=== PATIENT | female | born 1990 | race Caucasian/White ===

== ENCOUNTER 2018-06-30 19:24 | Emergency (ER) | payer BC, MEDICAID ==
[2018-06-30 20:19] VITALS: RESP 18
[2018-06-30] MEDS ORDERED: Albuterol-Ipratrop 3 mg / 0.5 (3 ml) UD INH STA (20:54)
[2018-06-30] MEDS ORDERED: Albuterol-Ipratrop 3 mg / 0.5 (3 ml) UD ONE (21:09)
--- NOTE | 2018-06-30 21:54 | C.PDOC ---
History Of Present Illness 28 year old female presents to the ED c/o coughing, wheezing typical for her asthma exacerbation. Patient states she has a puffer at home but does not use it , patient also has nebulizer machine and liquids at home but did not use it. Patient thought she might need another treatment. Patient states she only used 1 duoneb twice a day maximum. Patient gets treatments twice a year. Patient reports she also applies triamcinolone cream to various area in her body that she feels have eczema. Patient is also c/o increase body weight, central obesity , emergent buffalo hump, worsening sleep apnea proportional to her food intake. Time Seen by Provider: 06/30/18 20:42 Chief Complaint (Nursing): Cough, Cold, Congestion History Per: Patient History/Exam Limitations: no limitations Onset/Duration Of Symptoms: Days Current Symptoms Are (Timing): Still Present Associated Symptoms: Cough Severity: None Recent travel outside of the [place]: No Additional History Per: Patient Past Medical History Reviewed: Historical Data, Nursing Documentation, Vital Signs Vital Signs: Last Vital Signs Temp 99.2 F 06/30/18 22:11 Pulse 114 H 06/30/18 22:11 Resp 18 06/30/18 22:11 BP 141/87 06/30/18 22:11 Pulse Ox 99 06/30/18 22:11 - Medical History PMH: Asthma Surgical History: No Surg Hx Family History: States: Unknown Family Hx - Social History Hx Tobacco Use: No Hx Alcohol Use: Yes Hx Substance Use: No - Immunization History Hx Tetanus Toxoid Vaccination: No Hx Influenza Vaccination: Yes Hx Pneumococcal Vaccination: No Review Of Systems Constitutional: Negative for: Fever, Chills Cardiovascular: Negative for: Chest Pain, Palpitations Respiratory: Positive for: Cough, Shortness of Breath, Wheezing Gastrointestinal: Negative for: Nausea, Vomiting, Abdominal Pain Skin: Negative for: Rash Neurological: Negative for: Weakness, Numbness Physical Exam - Physical Exam Appears: Non-toxic, No Acute Distress Skin: Normal Color, Warm, Dry Head: Atraumatic, Normacephalic, Other (Ruther[place] face) Eye(s): bilateral: Normal Inspection Neck: Normal ROM, Supple, Other (buffalo hump) Chest: Symmetrical Cardiovascular: Rhythm Regular Respiratory: No Rales, No Rhonchi, No Wheezing, Other (tubular breath sounds) Gastrointestinal/Abdominal: Soft, No Tenderness, No Guarding, No Rebound, Other (central obesity extreme vertical stria) Back: Other (supraclavicula fat pad) Extremity: Normal ROM, No Tenderness, No Swelling Neurological/Psych: Oriented x3, Normal Speech Gait: Steady ED Course And Treatment O2 Sat by Pulse Oximetry: 100 (ON RA) Pulse Ox Interpretation: Normal Medical Decision Making Medical Decision Making: mild asthma exacerbation ? 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 eczema lesions of anti-cubital, thighs and upper chest area Instructed to STOP all steroids outpatient eval with 24 hr urine cortisol, ACTH levels with PMD ROS: + for worstening sleep apnea prob related to central obesity and small OP and significant weight gain Refer for sleep study and tx. Disposition Doctor Will See Patient In The: Office Counseled Patient/Family Regarding: Studies Performed, Diagnosis - Disposition Referrals: [facility] [Outside] [facility] [place] [Outside] [facility] [Outside] Kei Pimentel MD [Staff Provider] - Irwin Padilla MD [Staff Provider] - Disposition: HOME/ ROUTINE Disposition Time: 21:54 Condition: GOOD Additional Instructions: mild asthma exacerbation ? 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 eczema lesions of anti-cubital, thighs and upper chest area Instructed to STOP all steroids outpatient eval with 24 hr urine cortisol, ACTH levels with PMD ROS: + for worstening sleep apnea prob related to central obesity and small OP and significant weight gain Refer for sleep study and tx. call Dr. Pimentel to make appointment for a Sleep Study Prescriptions: Albuterol HFA [Ventolin HFA 90 mcg/actuation (8 g)] 2 puff IH Q4H PRN #1 puff PRN Reason: asthma Spacer, Inhalation [Aerochamber] 1 dev IH DAILY #1 dev Instructions: Makenna's Syndrome, Asthma in Adults, Sleep Apnea (DC) Forms: [facility] (Azeri) - Clinical Impression Clinical Impression: Asthma exacerbation, Makenna syndrome, Sleep apnea - Scribe Statement The provider has reviewed the documentation as recorded by the Scribe Dennis Miles All medical record entries made by the Scribe were at my direction and personally dictated by me. I have reviewed the chart and agree that the record accurately reflects my personal performance of the history, physical exam, medical decision making, and the department course for this patient. I have also personally directed, reviewed, and agree with the discharge instructions and disposition.
[2018-06-30 22:11] VITALS: BP 141/87; PULSE 114; TEMP 99.2
[2018-06-30 23:54] VITALS: O2SAT 100
== END 2018-06-30 22:23 | disposition home or self-care (01) ==
LOC: C.ER 19:24
DX: J45.901 Unspecified asthma with (acute) exacerbation (principal); G47.30 Sleep apnea, unspecified; E24.9 Cushing's syndrome, unspecified; Z87.891 Personal history of nicotine dependence

== ENCOUNTER 2018-07-10 09:57 | Emergency (ER) | payer BC ==
[2018-07-10 10:06] VITALS: BMI 42.4
--- NOTE | 2018-07-10 10:56 | RAD ---
Date of service: 07/10/2018 PROCEDURE: Right Ankle Radiographs. HISTORY: ankle swelling - r/o fx COMPARISON: None FINDINGS: BONES: No acute fracture. JOINTS: Ankle mortise maintained. Talar dome intact SOFT TISSUES: Bimalleolar soft tissue swelling. OTHER FINDINGS: None. IMPRESSION: No demonstrated fracture or dislocation.
[2018-07-10 11:15] VITALS: BP 113/78; PULSE 77; RESP 16; TEMP 98.7; O2SAT 100
--- NOTE | 2018-07-10 11:36 | C.PDOC ---
History Of Present Illness 28 y/o female presents to ED with c/o right ankle pain for 2 days after walking down steps and inverting right ankle. Patient is able to ambulate with slight limp and denies numbness, weakness or any other complaints at this time. Time Seen by Provider: 07/10/18 10:15 Chief Complaint (Nursing): Lower Extremity Problem/Injury History Per: Patient History/Exam Limitations: no limitations Onset/Duration Of Symptoms: Days Current Symptoms Are (Timing): Still Present Past Medical History Reviewed: Historical Data, Nursing Documentation, Vital Signs Vital Signs: Last Vital Signs Temp 98.7 F 07/10/18 11:13 Pulse 77 07/10/18 11:13 Resp 16 07/10/18 11:13 BP 113/78 07/10/18 11:13 Pulse Ox 100 07/10/18 14:11 - Medical History PMH: Asthma Surgical History: No Surg Hx Family History: States: No Known Family Hx - Social History Hx Tobacco Use: No Hx Alcohol Use: Yes Hx Substance Use: No - Immunization History Hx Tetanus Toxoid Vaccination: No Hx Influenza Vaccination: Yes Hx Pneumococcal Vaccination: No Review Of Systems Musculoskeletal: Positive for: Foot Pain. Negative for: Leg Pain Skin: Negative for: Rash, Bruising Neurological: Negative for: Weakness, Numbness Physical Exam - Physical Exam Appears: Non-toxic, No Acute Distress Skin: Warm, Dry, No Rash Head: Atraumatic, Normacephalic Eye(s): bilateral: Normal Inspection Oral Mucosa: Moist Extremity: Tenderness (lateral aspect of right ankle), Capillary Refill (<2 seconds), No Deformity, Swelling (to lateral aspect of right ankle) Extremity: Bilateral: Normal ROM Pulses: Right Dorsalis Pedis: Normal Neurological/Psych: Oriented x3, Normal Motor, Normal Sensation ED Course And Treatment O2 Sat by Pulse Oximetry: 100 (RA) Pulse Ox Interpretation: Normal Disposition - Disposition Referrals: [facility] Shruti Andrews, [Non-Staff] - Disposition: HOME/ ROUTINE Disposition Time: 10:55 Condition: GOOD Additional Instructions: MEL MONAE, thank you for letting us take care of you today. The emergency medical care you received today was directed at your acute symptoms. If you were prescribed any medication, please fill it and take as directed. It may take several days for your symptoms to resolve. Return to the Emergency Department if your symptoms worsen, do not improve, or if you have any other problems. Please contact your doctor or call one of the physicians/clinics you have been referred to that are listed on the Patient Visit Information form that is included in your discharge packet. Bring any paperwork you were given at discharge with you along with any medications you are taking to your follow up visit. Our treatment cannot replace ongoing medical care by a primary care provider outside of the emergency department. Thank you for allowing the [facility] team to be part of your care today. Follow up with your primary care doctor in 5-7 days for re-evaluation and further management. Prescriptions: Ibuprofen [Motrin] 600 mg PO Q6 PRN #20 tab PRN Reason: Pain, Moderate (4-7) Instructions: Ankle Sprain (DC) Forms: [employer] (Nigerien), Work Excuse - Clinical Impression Clinical Impression: Ankle sprain - Scribe Statement The provider has reviewed the documentation as recorded by the Willyibmey Thurman All medical record entries made by the Scribe were at my direction and personally dictated by me. I have reviewed the chart and agree that the record accurately reflects my personal performance of the history, physical exam, medical decision making, and the department course for this patient. I have also personally directed, reviewed, and agree with the discharge instructions and disposition.
== END 2018-07-10 11:16 | disposition home or self-care (01) ==
LOC: C.ER 09:57
DX: S93.401A Sprain of unspecified ligament of right ankle, initial encounter (principal); X50.9XXA Other and unspecified overexertion or strenuous movements or postures, initial encounter

== ENCOUNTER 2018-08-23 11:24 | Emergency (ER) | payer BC ==
[2018-08-23 11:24] VITALS: BMI 42.4
[2018-08-23] MEDS ORDERED: Sodium Chloride 0.9% 1,000 ML IV ONE (11:59)
[2018-08-23 12:33] LABS: BASO # 0.1 K/uL (0.0-0.2); EOS # 0.7 K/uL (0.0-0.7); EOS % 6.7 % (0.0-4.0); HEMOGLOBIN 12.4 g/dL (11.0-16.0); LYMPH # 2.9 K/uL (1.0-4.3); LYMPH % 28.6 % (20.0-40.0); MEAN CELL VOLUME 80.8 fL (81.0-99.0); MEAN CORPUSCULAR HEMOGLOBIN 26.5 pg (27.0-31.0); MEAN CORPUSCULAR HGB CONC 32.8 g/dL (33.0-37.0); MEAN PLATELET VOLUME 9.9 fL (7.2-11.7); MONO # 0.5 K/uL (0.0-0.8); MONO % 5.4 % (0.0-10.0); NEUT # 5.9 K/uL (1.8-7.0); NEUT % 58.3 % (50.0-75.0); RBC 4.67 Mil/uL (3.80-5.20); RED CELL DISTRIBUTION WIDTH 15.1 % (11.5-14.5); WHITE BLOOD COUNT 10.2 K/uL (4.8-10.8)
[2018-08-23 12:47] LABS: BLOOD UREA NITROGEN 10 mg/dL (7-17); CALCIUM 9.2 mg/dl (8.6-10.4); GFR NON-AFRICAN AMERICAN > 60
[2018-08-23 12:50] LABS: ALB/GLOB RATIO 1.1 (1.0-2.1); ALBUMIN 4.4 g/dL (3.5-5.0); ALT/SGPT 26 U/L (9-52); AST/SGOT 35 U/L (14-36)
--- NOTE | 2018-08-23 13:55 | C.PDOC ---
History Of Present Illness 28-year-old female, whose PMHx includes chronic vertigo, presents to the ED for evaluation of dizziness which began 3 days ago. Patient has not taken any medication for dizziness and denies having any prescription medication for dizz iness. Patient denies fever, chills, pain, trauma, nausea, vomiting. Time Seen by Provider: 08/23/18 11:41 Chief Complaint (Nursing): Dizziness/Lightheaded History Per: Patient History/Exam Limitations: no limitations Onset/Duration Of Symptoms: Days (3) Current Symptoms Are (Timing): Still Present Fall Associated With With Symptoms: No Additional History Per: Patient Past Medical History Reviewed: Historical Data, Nursing Documentation, Vital Signs Vital Signs: Last Vital Signs Temp 98.9 F 08/23/18 11:42 Pulse 75 08/23/18 11:42 Resp 18 08/23/18 11:42 BP 128/84 08/23/18 11:42 Pulse Ox 96 08/23/18 11:42 - Medical History PMH: Asthma Surgical History: No Surg Hx Family History: States: Unknown Family Hx - Social History Hx Tobacco Use: No Hx Alcohol Use: Yes Hx Substance Use: No - Immunization History Hx Tetanus Toxoid Vaccination: No Hx Influenza Vaccination: No Hx Pneumococcal Vaccination: No Review Of Systems Constitutional: Negative for: Fever, Chills Gastrointestinal: Negative for: Nausea, Vomiting Neurological: Positive for: Dizziness Physical Exam - Physical Exam Appears: Non-toxic, No Acute Distress Skin: Normal Color, Warm, Dry Head: Atraumatic, Normacephalic Eye(s): bilateral: Normal Inspection Oral Mucosa: Moist Neck: Supple Chest: Symmetrical, No Deformity, No Tenderness Cardiovascular: Rhythm Regular, No Murmur Respiratory: Normal Breath Sounds, No Rales, No Rhonchi, No Wheezing Extremity: Normal ROM, Capillary Refill (less than 2 seconds ) Neurological/Psych: Oriented x3, Normal Speech, Normal Cognition Gait: Steady ED Course And Treatment - Laboratory Results Result Diagrams: 08/23/18 12:31 08/23/18 12:31 O2 Sat by Pulse Oximetry: 96 (on RA) Pulse Ox Interpretation: Normal Medical Decision Making Medical Decision Making: Impression: 28 year old female with dizziness Plan: * Antivert PO * IV Fluids * reassess and disposition Progress: Antivert PO and IV Fluids given. On reassessment, patient is resting comfortably, showing no signs of distress and reports an improvement in her symptoms. Patient is ambulatory in the ED with a steady gait and is stable for discharge. Patient is advised to follow up with her PMD within 1-2 days for further evaluation. Advised to return to the ED if symptoms persist or worsen. Disposition - Disposition Referrals: [facility] Andrews, [Non-Staff] - Disposition: HOME/ ROUTINE Disposition Time: 13:50 Condition: IMPROVED Additional Instructions: MEL MONAE, thank you for letting us take care of you today. Your provider was Richar Barry DO and you were treated for DIZZINESS. The emergency medical care you received today was directed at your acute symptoms. If you were prescribed any medication, please fill it and take as directed. It may take s everal days for your symptoms to resolve. Return to the Emergency Department if your symptoms worsen, do not improve, or if you have any other problems. Please contact your doctor or call one of the physicians/clinics you have been referred to that are listed on the Patient Visit Information form that is included in your discharge packet. Bring any paperwork you were given at discharge with you along with any medications you are taking to your follow up visit. Our treatment cannot replace ongoing medical care by a primary care provider outside of the emergency department. Thank you for allowing the [facility] team to be part of your care today. Follow up with your primary care doctor in 2-3 days for re-evaluation and further management. Prescriptions: Meclizine [Meclizine*] 25 mg PO Q6 PRN #20 tab PRN Reason: Dizziness Instructions: Vertigo (a Type of Dizziness) (DC) Forms: [employer] (Albanian), Work Excuse - Clinical Impression Clinical Impression: Vertigo - Scribe Statement The provider has reviewed the documentation as recorded by the Scribe (Jordyn Jamil) Provider Attestation: All medical record entries made by the Scribe were at my direction and personally dictated by me. I have reviewed the chart and agree that the record accurately reflects my personal performance of the history, physical exam, medical decision making, and the department course for this patient. I have also personally directed, reviewed, and agree with the discharge instructions and disposition.
[2018-08-23 14:50] VITALS: BP 126/85; PULSE 83; RESP 16; TEMP 98.8
[2018-08-23 18:27] VITALS: O2SAT 96
== END 2018-08-23 14:50 | disposition home or self-care (01) ==
LOC: C.ER 11:24
DX: R42 Dizziness and giddiness (principal)
CPT/HCPCS: 80053; 85025; 96360; 99285; J7030